=== PATIENT | female | born 1940 | race Hispanic/Latino ===

== ENCOUNTER 2020-04-06 10:31 | Outpatient (CLI) | payer MEDICARE ==
--- NOTE | 2020-04-07 10:32 | Mammography Report ---
DIGITAL SCREENING MAMMOGRAM WITH CAD, 04/06/2020 INDICATION: Routine screening mammography. TECHNIQUE: Digital bilateral 2D mammography was obtained in the craniocaudal and mediolateral obliq ue projections. This examination was interpreted with the benefit of Computer-Aided Detection analysi s. COMPARISON: 06/26/2015, 06/16/2014 FINDINGS: Breast Density: There are scattered areas of fibroglandular density. There is no evidence of dominant mass, suspicious calcifications or architectural distortion in eithe r breast. IMPRESSION: Follow up recommendation: Routine yearly BI-RADS Category 1: Negative. A "normal" or negative report should not discourage follow up or biopsy of a clinically significant f inding. A written summary of these findings will be mailed to the patient. The patient will be entered into a mammography reporting system which will generate a reminder letter for the patient's next appointmen t at the appropriate interval. The [employer] recommends yearly mammograms starting at age 40 and continuing as l royce as a woman is in good health. Breast MRI is recommended for women with an approximate 20-25% or greater lifetime risk of breast cancer, including women with a strong family history of breast or ova silva cancer or who have been treated for Hodgkin's disease. Signer Name: Tr Nina MD Signed: 04/07/2020 10:28 AM Workstation Name: [id number]
== END 2020-04-06 10:32 | disposition home or self-care (01) ==
LOC: SPVWC 10:31
PROVIDERS: ATTEND Internal Medicine
DX: Z12.31 Encounter for screening mammogram for malignant neoplasm of breast (principal)
CPT/HCPCS: 77067

== ENCOUNTER 2020-04-11 10:58 | Outpatient (CLI) | payer MEDICARE ==
--- NOTE | 2020-04-12 08:34 | XRay Report ---
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 COMPARISON: None available FINDINGS: Support devices: None. Heart: Within normal limits. Lungs/pleura: The lungs are mildly hyperinflated consistent with mild to moderate emphysematous de leon es. No acute air space or interstitial disease. No pneumothorax. 5 mm calcified granuloma in the lef t midlung is noted. Additional findings: None. IMPRESSION: Emphysematous changes. No acute process. Signer Name: Abhi Preston Jr, MD Signed: 04/12/2020 8:30 AM Workstation Name: [id number]
== END 2020-04-11 10:59 | disposition home or self-care (01) ==
LOC: SPVIMAG 10:58
PROVIDERS: ATTEND Internal Medicine
DX: J43.8 Other emphysema (principal); J98.4 Other disorders of lung; F17.200 Nicotine dependence, unspecified, uncomplicated
CPT/HCPCS: 71046